=== PATIENT | male | born 1980 | race American Indian/Alaskan Native ===

== ENCOUNTER 2018-12-27 15:58 | Emergency (ER) | payer OTHER, BC ==
[2018-12-27 16:16] VITALS: BP 157/92
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
[2018-12-27] MEDS ORDERED: FLEXERIL PO ONE (18:24)
[2018-12-27] MEDS ORDERED: NORCO 5/325 PO ONE (18:24)
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
== END 2018-12-27 20:37 | disposition home or self-care (01) ==
LOC: ED 15:58
DX: S16.1XXA Strain of muscle, fascia and tendon at neck level, initial encounter (principal); M25.512 Pain in left shoulder; R51 Headache; M54.9 Dorsalgia, unspecified; Z98.890 Other specified postprocedural states; F17.200 Nicotine dependence, unspecified, uncomplicated; V49.49XA Driver injured in collision with other motor vehicles in traffic accident, initial encounter; Y93.89 Activity, other specified; Y92.410 Unspecified street and highway as the place of occurrence of the external cause; Y99.8 Other external cause status